=== PATIENT | female | born 1995 | race Caucasian/White ===

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

== ENCOUNTER 2017-03-21 18:25 | Emergency (ER) | payer BC, OTHER ==
[~2017-03-21] VITALS: Ht 160 cm; Wt 56.3 kg
[~2017-03-21 18:25] MED LIST changes: +NORCO 5/3251 TABLET PO
[2017-03-21 20:03] VITALS: BP 110/70
== END 2017-03-21 20:04 | disposition home or self-care (01) ==
LOC: EME 18:25
DX: S90.122A Contusion of left lesser toe(s) without damage to nail, initial encounter (principal); W10.9XXA Fall (on) (from) unspecified stairs and steps, initial encounter; F17.200 Nicotine dependence, unspecified, uncomplicated
CPT/HCPCS: 73630; 99281; 99284